=== PATIENT | female | born 1940 | race Caucasian/White ===

== ENCOUNTER → 2017-11-14 | Outpatient (CLI) | payer OTHER, MEDICARE ==
[2015-01-20 09:44] VITALS: BP 151/67
--- NOTE | 2017-11-14 16:30 | RAD ---
Indication: Knee pain Exam: Left knee series. Technique: AP, lateral, and oblique views. Findings: There is mild joint space narrowing medially in the knee. No fracture or dislocation is see n. The patella is intact and there is a questionable small effusion. No calcifications are seen in th e joint. The bones are well mineralized. Impression: Mild osteoarthritic changes medially in the knee with no acute bony abnormality seen Questionable small joint effusion. Reported By:
--- NOTE | 2017-11-14 16:31 | VAS ---
HISTORY: Leg pain and swelling Study: Color-flow duplex Doppler studies were performed of the left leg Comparison: None TECHNIQUE: Multiple holt scale and color flow Doppler images of the deep venous system were obtained of the left lower lower extremity. FINDINGS: The deep venous system of the left lower extremities was evaluated from the level of the common femor al vein through the popliteal vein. Normal color flow and augmentation can be observed. In addition , normal compression is seen throughout the deep venous system. IMPRESSION: Negative for DVT. Reported By:
== END ==
LOC: RAD 15:28
PROVIDERS: ATTEND Nurse Practitioner Family
DX: M79.605 Pain in left leg (principal); M25.562 Pain in left knee; R60.0 Localized edema
CPT/HCPCS: 73564; 93971

== ENCOUNTER 2017-11-21 19:07 | Emergency (ER) | payer OTHER, MEDICARE ==
[2017-11-21 19:13] VITALS: BP 163/71; BMI 22.8
[2017-11-21] MEDS ORDERED: DILAUDID INJ IM ONE (19:46)
--- NOTE | 2017-11-21 19:47 | DR.EXTPAIN ---
HPI - Time seen Time seen: 19:43 - PCP Primary Care Physician: JAM - Complaint/Symptoms Chief Complaint Doctor Comments: Patient fell out of a concession truck onto the metal tongue and injured her back earlier today. She compolains of severe back pain Chief Complaint:: STEP OUT OF CONCESSION TRAILOR OFF STOOL AND FELL ON METAL TONQUE OF TRAILOR. - Source History Provided: Patient - Mode of arrival Mode of Arrival: Wheelchair - Timing Onset of Chief Complaint: 11/21/17 PMH - PMH Past Medical History: Yes Past Medical History: Arthritis Past Surgical History: Yes Surgical History: Hysterectomy - Family History History of Family Medical Conditions: No - Social History Does any household member use tobacco: No Alcohol Use: None Do you use any recreational Drugs:: No Lives With: Spouse - infectious screening In the last 2 months have you had wt loss of >10#?: NO Have you had fever, night sweats or hemotysis?: No Have you traveled outside the country in the last 6 months?: No Isolation: Standard ROS - Review of Systems Eyes: No Symptoms Reported ENTM: No Symptoms Reported Respiratoy: No Symptoms Reported Cardiovascular: No Symptoms Reported Gastrointestinal/Abdominal: No Symptoms Reported Genitourinary: No Symptoms Reported Neurological: No Symptoms Reported Musculoskeletal: No Symptoms Reported Integumentary: Other (abrasion of left elbow) Hematologic/Lymphatic: No Symptoms Reported Endocrine: No Symptoms Reported Psychiatric: No Symptoms Reported All Other Systems: Reviewed and Negative PE - Vital Signs Vitals: Temperature 97.2 F Pulse Rate 74 Respiratory Rate 20 Blood Pressure 163/71 O2 Sat by Pulse Oximetry 99 - General Limitations: Physical Limitation (back pain) General Appearance: Alert, In No Apparent Distress - Head Head Exam: Normal Inspection, Atraumatic - Eyes Eye exam: Normal Appearance, PERRL, EOMI - ENT ENT Exam: Normal Exam - Neck Neck Exam: Normal Inspection, Full ROM - Chest Chest Inspection: Normal Inspection - Respiratory Respiratory Exam: Normal Lung Sounds Bilat Respiratory Exam: Bilateral Clear to Auscultation - Cardiovascular Cardiovascular Exam: Regular Rate, Normal Rhythm - Abdominal Exam Abdominal Exam: Normal Inspection Abdominal Tenderness: negative: RUQ, RLQ, LUQ, LLQ, Epigastrium, Suprapubic, Diffuse, Mild, Moderate, Severe, Other - Extremities Extremities Exam: Other (abrasion of left elbow) - Upper Extremities Shoulder Exam: Normal Inspection Arm Exam: Normal Inspection Elbow Exam: Abrasion (left) Forearm Exam: Normal Inspection Hand Exam: Normal Inspection Neuromotor Exam: Normal Exam Neurosensory Exam: Normal Exam Hand Tendon Exam: Flexor Digitorium Profundus (Location) Upper Ext. Vascular Exam: Capillary Refill - Lower Extremities Hip/Pelvis Exam: Normal Inspection Upper Leg Exam: Normal Inspection Knee Exam: Normal Inspection Lower Leg Exam: Normal Inspection Foot/Toe Exam: Normal Inspection Neurovascular/Tendon Exam: Normal Capillary Refill - Back Back Exam: Tenderness, (L) CVA Tenderness, Muscle Spasm, Other (scoliosis) - Neurological Neurological Exam: Alert, Oriented X3, CN II-XII Intact - Psychiatric Psychiatric Exam: Normal Affect - Skin Skin Exam: Other (bruisine of left iliac spine, abrasion of left elbow) Type of Lesion: Abrasion Course - Reevaluation 1st: Improved - Education/Counseling Educated On: Treatment, Diagnosis, Prognosis ROR - Labs Reviewed Laboratory: Specimen Type Clean catch urine 11/21/17 19:54 Urine Color Yellow (YELLOW) 11/21/17 19:54 Urine Appearance Clear (CLEAR) 11/21/17 19:54 Urine pH 5.0 (5.0 - 8.0) 11/21/17 19:54 Ur Specific [place] 1.025 (1.000-1.030) 11/21/17 19:54 Urine Protein Negative (NEGATIVE) 11/21/17 19:54 Urine Glucose (UA) Negative (NEGATIVE) 11/21/17 19:54 Urine Ketones Negative (NEGATIVE) 11/21/17 19:54 Urine Occult Blood 1+ (NEGATIVE) 11/21/17 19:54 Urine Nitrite Negative (NEGATIVE) 11/21/17 19:54 Urine Bilirubin Negative (NEGATIVE) 11/21/17 19:54 Urine Urobilinogen Normal (NORMAL) 11/21/17 19:54 Ur Leukocyte Esterase Negative (NEGATIVE) 11/21/17 19:54 Urine RBC 0-2 /HPF (NONE SEEN) 11/21/17 19:54 Urine WBC None seen /HPF (NONE SEEN) 11/21/17 19:54 Ur Squamous Epith Cells Rare /HPF (NEGATIVE) 11/21/17 19:54 Urine Bacteria Negative /HPF (NEGATIVE) 11/21/17 19:54 Urine Mucus Few /HPF (NEGATIVE) 11/21/17 19:54 Ur Culture Indicated? No/not indicated 11/21/17 19:54 - XRAY XRAY Interpreted by: Radiologist (CT Chest w/o: Minimally displaced left posterior 11th rib fracture. Lumbar: No evidence of acute osseous injury to the lumbar spine. Multilevel lumbar spondylosis, lumbar dextroscoliosis) - Diagnosis Discharge Problem: 11th rib fracture, left posterior - Discharge Plan Condition: Stable - Follow ups/Referrals Follow ups/Referrals: JENISE BEDOYA [Primary Care Provider] - 3 days - Instructions
[2017-11-21] MEDS ORDERED: DILAUDID INJ ONE (19:48)
[2017-11-21 20:05] LABS: BILIRUBIN,URINE NEGATIVE (NEGATIVE); BLOOD/HEMOGLOBIN,URINE 1+ (NEGATIVE); GLUCOSE, URINE NEGATIVE (NEGATIVE); KETONES,URINE NEGATIVE (NEGATIVE); LEUKOCYTE ESTERASE ,URINE NEGATIVE (NEGATIVE); NITRITES,URINE NEGATIVE (NEGATIVE); PROTEIN,URINE NEGATIVE (NEGATIVE); UROBILINOGEN,URINE NORMAL (NORMAL)
[2017-11-21 20:06] LABS: APPEARANCE,URINE CLEAR (CLEAR); COLOR,URINE YELLOW (YELLOW)
[2017-11-21 20:14] LABS: BACTERIA,URINE NEGATIVE /HPF (NEGATIVE); MUCUS,URINE FEW /HPF (NEGATIVE); RBC,URINE 0-2 /HPF (NONE SEEN); SQUAMOUS EPITHELIAL CELL,UR RARE /HPF (NEGATIVE)
--- NOTE | 2017-11-21 21:12 | CT ---
STUDY: CT LUMBAR SPINE WITHOUT CONTRAST HISTORY: Fell. Left-sided pain. Back pain. Comparison: None. Technique: Multiple axial images of the lumbar spine were obtained from the thoracolumbar junction t o the sacrum without the administration of IV contrast. Sagittal and coronal reformats were performe d and reviewed. Findings: There is a lumbar dextroscoliosis centered at L2. Vertebral body heights and alignment are otherwise within normal limits. There is no evidence of acute fracture or subluxation. There is multi level degenerative disc disease and degenerative endplate change. There is multilevel facet arthropat hy. There is no significant central canal stenosis bony osteophyte or soft tissue components. There is no significant osseous neural foraminal stenosis. The surrounding paraspinous soft tissues are n ormal in appearance. IMPRESSION: 1. No evidence of acute osseous injury to the lumbar spine. 2. Multilevel lumbar spondylosis. 3. Lumbar dextroscoliosis. Reported By:
--- NOTE | 2017-11-21 21:26 | CT ---
HISTORY: Left lower rib pain status post fall. Study: CT chest without contrast Comparison: None. Technique: Multiple axial images of the chest were obtained from the thoracic inlet to the upper abdo men without the administration of IV contrast. MIP images were obtained. Dose reduction techniques in cluding Automated Exposure Control (AEC) and adjustment of mA and kV were utilized. Findings: Limited study secondary to lack of IV contrast. The mediastinum does not demonstrate significant pathological lymphadenopathy. There is no paracardi al effusion observed. The thoracic aorta is normal in its contour without evidence for aneurysmal di latation. Mild cardiomegaly. Coronary artery and thoracic aorta calcifications. No suspicious pulmonary nodule, mass, pleural effusion, focal consolidation, or pneumothorax. Depende nt atelectasis versus scarring. The visualized upper abdominal structures are unremarkable. Minimally displaced posterior 11th left rib fracture. Remaining osseous structures appear intact. No aggressiv e osseous lesions. IMPRESSION: 1. Minimally displaced left posterior 11th rib fracture. 2. Other chronic findings as above. Reported By:
[2017-11-21] MEDS ORDERED: TYLENOL #3 TAB (W/CODEINE) PO PRN (21:38)
[2017-11-21] MEDS ORDERED: TYLENOL #3 TAB (W/CODEINE) PO ONE (21:41)
== END 2017-11-21 21:50 | disposition home or self-care (01) ==
LOC: ER 19:18
DX: S22.31XA Fracture of one rib, right side, initial encounter for closed fracture (principal); M47.817 Spondylosis without myelopathy or radiculopathy, lumbosacral region; M41.20 Other idiopathic scoliosis, site unspecified; W01.198A Fall on same level from slipping, tripping and stumbling with subsequent striking against other object, initial encounter; Y92.89 Other specified places as the place of occurrence of the external cause
CPT/HCPCS: 71250; 72131; 81001; 96372; 99283; 99284; J1170